=== PATIENT | male | born 1950 | race Caucasian/White ===

== ENCOUNTER → 2023-06-03 | Outpatient (CLI) | payer MEDICARE, MEDICAID ==
[~2023-06-03] VITALS: Ht 172.7 cm; Wt 54.0 kg
[~2023-06-03] MED LIST: ASPI-611 PO; LOVA20TA2 PO; METO50TA16 PO; OMEP40CA21 PO; PER5325T PO; RANI150C4 PO
[2023-06-03] MEDS: albuterol 2.5 MG/3 ML nebule NEB ONE (16:13)
[2023-06-03 16:14] VITALS: PULSE 66; RESP 16; O2SAT 96
== END | disposition home or self-care (01) ==
LOC: RT 15:34
PROVIDERS: ATTEND Physician Assistant Medical
DX: J43.9 Emphysema, unspecified (principal); J44.9 Chronic obstructive pulmonary disease, unspecified
CPT/HCPCS: 94060; 94760